=== PATIENT | female | born 1965 ===

== ENCOUNTER 2021-09-01 12:14 | Emergency (ER) | payer SELFPAY ==
--- NOTE | 2021-09-01 13:29 | EDM.PDOC ---
ED HPI GENERAL MEDICAL PROBLEM - General Chief Complaint: General Stated Complaint: CHILLS Time Seen by Provider: 09/01/21 13:01 Source of Information: Reports: Patient, Family ( who helps interpret), RN Notes Reviewed History Limitations: Reports: No Limitations - History of Present Illness INITIAL COMMENTS - FREE TEXT/NARRATIVE: Patient is a 56-year-old female who presents to the ER with her for the evaluation of a few generalized symptoms. The patient is primarily [place]ian- speaking so the does help to translate. The patient states that since yesterday, she has felt somewhat faint. She does get hot and cold flashes from time to time, but has had no discernible fever. She is denying any cough or shortness of breath. She is further denying any severe nausea/vomiting/diarrhea. She did have some right-sided abdominal discomfort earlier today. Patient states again that she has felt faint but has not passed out. She did receive her Moderna COVID vaccine. She has not been around anyone has been sick that she is aware of. 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 ED EXAM, GENERAL - Physical Exam Exam: See Below Exam Limited By: No Limitations General Appearance: Alert, WD/WN, No Apparent Distress Respiratory/Chest: No Respiratory Distress, Lungs Clear, Normal Breath Sounds, No Accessory Muscle Use, Chest Non-Tender Cardiovascular: Normal Peripheral Pulses, Regular Rate, Rhythm, No Edema GI/Abdominal: Normal Bowel Sounds, Soft, No Distention, No Mass, Tender (slight tenderness over the right abdomen) Extremities: Normal Inspection, Normal Capillary Refill Neurological: Alert, Oriented, Normal Cognition, No Motor/Sensory Deficits Psychiatric: Normal Affect, Normal Mood Skin Exam: Warm, Dry, Intact, Normal Color, No Rash Course - Vital Signs Last Recorded V/S: Last Vital Signs Temp 96.7 F L 09/01/21 13:01 Pulse 71 09/01/21 13:01 Resp 16 09/01/21 13:01 BP 121/82 09/01/21 13:01 Pulse Ox 97 09/01/21 13:01 - Orders/Labs/Meds Orders: Active Orders 24 hr Category Date Time Status Holter Monitor 48 Hours [RC] .PRN Care 09/01/21 15:15 Ordered Labs: Laboratory Tests 09/01/21 09/01/21 09/01/21 Range/Units 13:25 13:25 13:25 WBC 8.09 (3.98-10.04) K/mm3 RBC 4.30 (3.98-5.22) M/mm3 Hgb 13.0 (11.2-15.7) gm/dl Hct 40.7 (34.1-44.9) % MCV 94.7 (79.4-94.8) fl MCH 30.2 (25.6-32.2) pg MCHC 31.9 L (32.2-35.5) g/dl RDW Std Deviation 42.0 (36.4-46.3) fL Plt Count 222 (182-369) K/mm3 MPV 10.2 (9.4-12.3) fl Neut % (Auto) 77.1 H (34.0-71.1) % Lymph % (Auto) 13.8 L (19.3-51.7) % [place] % (Auto) 8.5 (4.7-12.5) % Eos % (Auto) 0.4 L (0.7-5.8) Baso % (Auto) 0.1 (0.1-1.2) % Neut # (Auto) 6.23 H (1.56-6.13) K/mm3 Lymph # (Auto) 1.12 L (1.18-3.74) K/mm3 [place] # (Auto) 0.69 H (0.24-0.36) K/mm3 Eos # (Auto) 0.03 L (0.04-0.36) K/mm3 Baso # (Auto) 0.01 (0.01-0.08) K/mm3 Sodium 142 (136-145) mEq/L Potassium 4.1 (3.5-5.1) mEq/L Chloride 107 (98-107) mEq/L Carbon Dioxide 28 (21-32) mEq/L Anion Gap 11.1 (5-15) BUN 12 (7-18) mg/dL Creatinine 0.7 (0.55-1.02) mg/dL Est Cr Clr Drug Dosing 78.83 mL/min Estimated GFR (MDRD) > 60 (>60) mL/min BUN/Creatinine Ratio 17.1 (14-18) Glucose 62 L (70-99) mg/dL Calcium 9.0 (8.5-10.1) mg/dL Magnesium 2.2 (1.8-2.4) mg/dL Total Bilirubin 0.6 (0.2-1.0) mg/dL AST 15 (15-37) U/L ALT 19 (14-59) U/L Alkaline Phosphatase 102 (46-116) U/L Total Protein 7.3 (6.4-8.2) g/dl Albumin 3.9 (3.4-5.0) g/dl Globulin 3.4 gm/dL Albumin/Globulin Ratio 1.2 (1-2) TSH 3rd Generation 3.068 (0.358-3.74) uIU/mL Urine Color (Yellow) Urine Appearance (Clear) Urine pH (5.0-8.0) Ur Specific [place] (1.005-1.030) Urine Protein (Negative) Urine Glucose (UA) (Negative) Urine Ketones (Negative) Urine Occult Blood (Negative) Urine Nitrite (Negative) Urine Bilirubin (Negative) Urine Urobilinogen (0.2-1.0) Ur Leukocyte Esterase (Negative) Urine RBC (0-5) /hpf Urine WBC (0-5) /hpf Ur Epithelial Cells (0-5) /hpf Urine Bacteria (FEW) /hpf Urine Mucus (FEW) /hpf Influenza Type A RNA (NEGATIVE) Influenza Type B RNA (NEGATIVE) SARS-CoV-2 RNA (BILLY) (NEGATIVE) 09/01/21 09/01/21 Range/Units 14:08 14:08 WBC (3.98-10.04) K/mm3 RBC (3.98-5.22) M/mm3 Hgb (11.2-15.7) gm/dl Hct (34.1-44.9) % MCV (79.4-94.8) fl MCH (25.6-32.2) pg MCHC (32.2-35.5) g/dl RDW Std Deviation (36.4-46.3) fL Plt Count (182-369) K/mm3 MPV (9.4-12.3) fl Neut % (Auto) (34.0-71.1) % Lymph % (Auto) (19.3-51.7) % [place] % (Auto) (4.7-12.5) % Eos % (Auto) (0.7-5.8) Baso % (Auto) (0.1-1.2) % Neut # (Auto) (1.56-6.13) K/mm3 Lymph # (Auto) (1.18-3.74) K/mm3 [place] # (Auto) (0.24-0.36) K/mm3 Eos # (Auto) (0.04-0.36) K/mm3 Baso # (Auto) (0.01-0.08) K/mm3 Sodium (136-145) mEq/L Potassium (3.5-5.1) mEq/L Chloride (98-107) mEq/L Carbon Dioxide (21-32) mEq/L Anion Gap (5-15) BUN (7-18) mg/dL Creatinine (0.55-1.02) mg/dL Est Cr Clr Drug Dosing mL/min Estimated GFR (MDRD) (>60) mL/min BUN/Creatinine Ratio (14-18) Glucose (70-99) mg/dL Calcium (8.5-10.1) mg/dL Magnesium (1.8-2.4) mg/dL Total Bilirubin (0.2-1.0) mg/dL AST (15-37) U/L ALT (14-59) U/L Alkaline Phosphatase (46-116) U/L Total Protein (6.4-8.2) g/dl Albumin (3.4-5.0) g/dl Globulin gm/dL Albumin/Globulin Ratio (1-2) TSH 3rd Generation (0.358-3.74) uIU/mL Urine Color Yellow (Yellow) Urine Appearance Clear (Clear) Urine pH 7.5 (5.0-8.0) Ur Specific [place] 1.020 (1.005-1.030) Urine Protein Negative (Negative) Urine Glucose (UA) Negative (Negative) Urine Ketones Negative (Negative) Urine Occult Blood Negative (Negative) Urine Nitrite Negative (Negative) Urine Bilirubin Negative (Negative) Urine Urobilinogen 0.2 (0.2-1.0) Ur Leukocyte Esterase Negative (Negative) Urine RBC 0-5 (0-5) /hpf Urine WBC 0-5 (0-5) /hpf Ur Epithelial Cells 5-10 H (0-5) /hpf Urine Bacteria Few (FEW) /hpf Urine Mucus Not seen (FEW) /hpf Influenza Type A RNA Negative (NEGATIVE) Influenza Type B RNA Negative (NEGATIVE) SARS-CoV-2 RNA (BILLY) Negative (NEGATIVE) - Re-Assessments/Exams Free Text/Narrative Re-Assessment/Exam: 09/01/21 13:28 Patient's presents to the ER for her generalized symptoms. We will go ahead and swab her for COVID-19, get some basic labs for initial evaluation. The patient's hot/cold flashes, very well could be due to hormonal derangement due to her age. States she has not had her menses in some time. I do not believe that she is followed closely by a care provider. 09/01/21 15:07 Patient's laboratory evaluation is essentially unremarkable, influenza and Covid screen are both negative at today's visit. Patient is not anemic, no electrolyte abnormalities to discern why she could have felt presyncopal yesterday. We will have her follow-up with her regular care provider for more in-depth testing should her symptoms persist however I will give her general recommendations to increase her oral fluid intake and try to rest and relax over the next few days. Departure - Departure Time of Disposition: 15:07 Disposition: Home, Self-Care 01 Condition: Good Clinical Impression: Light-headed feeling, Hot flashes - Discharge Information *PRESCRIPTION DRUG MONITORING PROGRAM REVIEWED*: No *COPY OF PRESCRIPTION DRUG MONITORING REPORT IN PATIENT DIA: No Instructions: Dizziness, [id number] Referrals: Marcia Shell MD [Physician] - 1 Week Forms: ED Department Discharge Additional Instructions: You were evaluated in the ER today for your presyncopal feelings you have been having for the last few days. Laboratory evaluation at today's visit is essentially unremarkable, there are no abnormalities on your blood count which would show that you are anemic. Your metabolic panel demonstrates no electrolyte abnormalities. Your influenza and Covid screen are both negative for today's purposes. Your urinalysis was also negative for any sort of infection. Your thyroid level was also within normal limits. No major cause was identified at today's visit to explain why you are feeling presyncopal or lightheaded/dizzy over the past few days. I would recommend you increase your oral fluid intake over the next few days to see if this helps relieve some of your symptoms and try to get some rest and take it easy to see if this also helps. If you do not have a primary care provider already, I recommend that you follow- up with a provider in our clinic, we will suggest Dr. Marcia Shell. our clinic telephone number [phone], please call in the morning to obtain an appointment with the provider, for follow-up of your symptoms that prompted your ER visit today. You have been sent home with a Holter monitor for cardiac monitoring over the next 48 hours. Please return this monitor to our ER entrance after 48 hours has completed. Do not hesitate to return to the ER at any time if symptoms change or worsen. Sepsis Event Note (ED) - Focused Exam Vital Signs: Vital Signs Temp Pulse Resp BP Pulse Ox 09/01/21 13:01 96.7 F L 71 16 121/82 97 - My Orders Last 24 Hours: My Active Orders 09/01/21 15:15 Holter Monitor 48 Hours [RC] .PRN - Assessment/Plan Last 24 Hours: My Active Orders 09/01/21 15:15 Holter Monitor 48 Hours [RC] .PRN
== END 2021-09-01 15:30 | disposition home or self-care (01) ==
LOC: JD.ED 12:14
DX: R42 Dizziness and giddiness (principal); N95.1 Menopausal and female climacteric states; Z20.822 Contact with and (suspected) exposure to COVID-19
CPT/HCPCS: 36415; 80053; 81001; 83735; 84443; 85025; 87804; 93225; 93226; 99284; U0002